=== PATIENT | male | born 1980 | race Caucasian/White ===

== ENCOUNTER 2019-12-24 11:57 | Observation (INO) | payer OTHER, SELFPAY ==
[2019-12-24] VITALS (9 sets, daily range): BP systolic 120–154; BP diastolic 83–108; PULSE 77–109; RESP 16–18; TEMP 36.6–37.2; O2SAT 97–100; BMI 25.2
--- NOTE | ~2019-12-24 | US_ITS ---
EXAMINATION: US right upper quadrant DATE: 12/24/2019 15:29 INDICATION: Acute cholecystitis TECHNIQUE: Multiple grayscale and Doppler ultrasound images of the abdomen were obtained. COMPARISON: CT dated 12/24/2019 FINDINGS: The body of the pancreas is poorly visualized but appears unremarkable. Liver has normal contour, wit h a smooth surface. There is increased parenchymal echogenicity and coarsened echotexture consistent with diffuse hepatic steatosis. No liver lesion identified. No intrahepatic biliary duct dilation maldonado spected. Portal venous flow was seen in the hepatopetal, normal direction and has normal Doppler wave form. There is diffuse mild gallbladder wall thickening. There is small amount of hypoechoic sludge i n the dependent gallbladder. No evidence shadowing cholelithiasis. The common bile duct measures 5 mm , which is normal. Sonographic Chairez sign was reported as positive by the weatherseal technician. Visualized po rtion of the right kidney demonstrate normal echogenicity and contour with no hydronephrosis. IMPRESSION: 1. Diffuse gallbladder wall thickening with positive sonographic Chairez's sign suggestive of acute ch olecystitis although no shadowing gallstones are identified. 2. Diffuse hepatic steatosis. Reviewed, dictated and finalized at location A. IMPRESSION: 1. Diffuse gallbladder wall thickening with positive sonographic Chairez's sign suggestive of acute cholecystitis although no shadowing gallstones are identifi ed. 2. Diffuse hepatic steatosis.
--- NOTE | ~2019-12-24 | CT_ITS ---
EXAMINATION: CT abdomen pelvis w con DATE: 12/24/2019 14:09 INDICATION: Right upper quadrant abdominal pain. TECHNIQUE: Computed tomography (CT) of the abdomen and pelvis was performed with 100 mL Omnipaque 350 intravenous contrast. Automated exposure control and iterative reconstruction technique were employe d. The dose-length product was 561.49 mGy-cm. COMPARISON: None. FINDINGS: The visualized portions of the lung bases demonstrate mild atelectasis. No pleural effusion . The heart size is normal. No pericardial effusion. There is mild bilateral gynecomastia. The liver and spleen are normal. The gallbladder is distended and demonstrates adjacent fat stranding, consiste nt with acute cholecystitis. The pancreas, adrenal glands, and kidneys are normal. There is a left in guinal hernia containing fat. There are no dilated loops of bowel. The appendix is normal. There are no pathologically enlarged lymph nodes. There is no free intraperitoneal fluid. There is mild thoraco lumbar spondylosis. IMPRESSION: 1. Acute cholecystitis. Reviewed, dictated and finalized at location A. IMPRESSION: 1. Acute cholecystitis.
--- NOTE | ~2019-12-24 | XR_ITS ---
EXAMINATION: XR chest 2V DATE: 12/24/2019 13:05 INDICATION: Chest pain. Epigastric abdominal pain. TECHNIQUE: Frontal and lateral views of the chest were obtained. COMPARISON: None. FINDINGS: Lung volumes are small. No pneumonia, pleural effusion, or pneumothorax. The heart size is normal. IMPRESSION: 1. Small lung volumes. Reviewed, dictated and finalized at location A. IMPRESSION: 1. Small lung volumes.
--- NOTE | 2019-12-24 11:58 | ECG_ITS ---
Measurements Intervals [place] Rate: 89 P: 23 DE: 147 QRS: 20 QRSD: 82 T: -8 QT: 358 QTc: 437 Interpretive Statements SINUS RHYTHM BORDERLINE ST-T WAVE ABNORMALITY- ANT/INF LEADS BASELINE WANDER- I, II, AVR, AVF, V3, V6 BORDERLINE ECG Electronically Signed On 12-24-2019 12:45:39 CDT by Stephen Coronado D.O.
[2019-12-24 12:25] LABS: Hematocrit 40.2 % (42.0-52.0); Hemoglobin 13.8 g/dL (14.0-18.0); Immature Granulocyte Percent A 0.2 % (0-0.5); Mean Corpuscular HGB Conc 34.3 g/dl (32-36); Mean Corpuscular Hemoglobin 30.3 pg (26-34); Mean Corpuscular Volume 88.4 fl (80-100); Mean Platelet Volume 9.5 fl (7.4-10.4); Neutrophils Percent Auto 72.8 % (45.5-73.1); Platelet Count Result 261 k/mm3 (150-375); Red Blood Count 4.55 M/mm3 (4.6-6.20); Red Cell Distribution Width 12.8 % (11.5-14.5); White Blood Count 9.2 K/mm3 (4.5-10.0)
[2019-12-24 12:26] LABS: Basophils Percent Auto 0.2 % (0.2-1.2); Eosinophils Absolute Auto 0.1 K/mm3 (0-0.3); Eosinophils Percent Auto 0.8 % (0-4.4); Immature Granulocyte Absolute 0.02 K/mm3 (0.00-0.031); Lymphocytes Percent Auto 20.6 % (18.3-44.2); Monocytes Absolute Auto 0.5 K/mm3 (0.1-0.6); Monocytes Percent Auto 5.4 % (2.6-8.5); Neutrophils Absolute Auto 6.7 K/mm3 (1.3-6.7)
[2019-12-24 12:30] LABS: Blood Urea Nitrogen 10 mg/dL (9-20); Calcium 9.5 mg/dL (8.4-10.2); Carbon Dioxide 27 mmol/L (22-30); Chloride 101 mmol/L (98-107); Estimated CRCL calculation 72 ml/min; Estimated Glomerular Filt Rate 56; Glucose 113 mg/dL (75-110); Potassium 3.9 mmol/L (3.4-5.0); Sodium 137 mmol/L (137-145)
[2019-12-24 12:40] LABS: Troponin I < 0.012 ng/mL (0.000-0.034)
--- NOTE | 2019-12-24 12:55 | ED.CHESTPAIN ---
HPI - Chest Pain General Chief Complaint: Chest Pain Stated Complaint: CHEST PAIN Time Seen by Provider: 12/24/19 12:55 History of Present Illness HPI narrative: Epigastric pain radiating into the back and flanks bilaterally since last night. Feels like pressure. Associated with nausea and vomiting. Tried gas-x and Tums without relief. Related Data Allergies Allergy/AdvReac Type Severity Reaction Status Date / Time No Known Allergies Allergy Verified 12/24/19 13:40 Review of Systems Review of Systems: All systems reviewed & are unremarkable except as noted in HPI and below Constitutional: Constitutional: Denies fever(s) Cardiovascular: Cardiovascular: Denies chest pain Respiratory: Respiratory: Denies dyspnea Gastrointestinal: Gastrointestinal: Reports abdominal pain, Reports nausea and Reports vomiting Neurologic: Denies dizziness and Denies weakness FORMERLY [facility], [facility]–1983 Past Medical History Medical History (Updated 12/24/19 @ 16:00 by Young Cooley MD) GERD (gastroesophageal reflux disease) Pineal gland cyst Social History Social History Gender identity (if verbalized by the patient): Male Exam Const: General: healthy appearing, no acute distress and alert Orientation/consciousness: patient oriented x3 HENMT: Head: normal to inspection Neck: Neck: normal visual inspection and no lymphadenopathy Chest: Chest palpation & inspection: no tenderness Resp: Effort & Inspection: normal respiratory effort Auscultation: clear to auscultation bilaterally, no rales, no rhonchi and no wheezes Cardio: Jugular venous distension: no JVD Rate: regular rate Rhythm: regular rhythm Heart sounds: no murmurs GI: GI Palp: Yes Soft to palpation and No Tenderness to palpation present (GI) Other: Epigastric tenderness without rebound or guarding. Skin: General skin exam: normal color Neuro: General: patient oriented x3 and moves all extremities Speech: normal speech Extrem: General: no edema Psych: Appearance: well kempt Affect: normal affect Course Vital Signs Vital signs: Vital Signs Temperature 36.6 C 12/24/19 12:00 Pulse Rate 95 12/24/19 12:00 Respiratory Rate 18 12/24/19 12:00 Blood Pressure 149/100 H 12/24/19 12:00 Pulse Oximetry 100 12/24/19 12:00 Temperature 36.6 C 12/24/19 12:00 Pulse Rate 77 12/24/19 15:47 Respiratory Rate 18 12/24/19 15:47 Blood Pressure 131/90 12/24/19 15:47 Pulse Oximetry 98 12/24/19 15:47 MDM - Chest Pain MDM Narrative Medical decision making narrative: Pain most concerning for gall bladder disease. CT shows acute cholecystitis. Case discussed with Dr. Devine. He will admit. requesting gall bladder US and Zosyn, ordered. Lab Data Result diagrams: 12/24/19 12:10 12/24/19 12:11 Labs: Lab Results 12/24/19 12/24/19 12/24/19 Range/Units 12:10 12:11 12:11 WBC 9.2 (4.5-10.0) K/mm3 RBC 4.55 L (4.6-6.20) M/mm3 Hgb 13.8 L (14.0-18.0) g/dL Hct 40.2 L (42.0-52.0) % MCV 88.4 (80-100) fl MCH 30.3 (26-34) pg MCHC 34.3 (32-36) g/dl RDW 12.8 (11.5-14.5) % Plt Count 261 (150-375) k/mm3 MPV 9.5 (7.4-10.4) fl Immature Gran % (Auto) 0.2 (0-0.5) % Neut % (Auto) 72.8 (45.5-73.1) % Lymph % (Auto) 20.6 (18.3-44.2) % [place] % (Auto) 5.4 (2.6-8.5) % Eos % (Auto) 0.8 (0-4.4) % Baso % (Auto) 0.2 (0.2-1.2) % Lymph # (Auto) 1.90 (0.9-3.2) K/mm3 [place] # (Auto) 0.5 (0.1-0.6) K/mm3 Eos # (Auto) 0.1 (0-0.3) K/mm3 Baso # (Auto) 0.0 (0.0-0.1) K/mm3 Abs Immat Gran (auto) 0.02 (0.00-0.031) K/mm3 Absolute Neuts (auto) 6.7 (1.3-6.7) K/mm3 Absolute Nucleated RBC 0.0 (0.0-0.012) K/mm3 Nucleated RBC % 0.0 (0.0-0.2) % PT 12.3 (11.1-14.7) Seconds INR 0.9 APTT 30.0 (22.3-36.8) SECONDS Sodium 137 (137-145) mmol/L Potassium 3.9 (3.4-5.0) mmol/L Ch
[2019-12-24] MEDS: ASPIRIN 81 MG CHEWABLE TABLET 324 MG PO (12:59)
[2019-12-24 13:06] LABS: INR 0.9; Prothrombin Time 12.3 Seconds (11.1-14.7)
[2019-12-24] MEDS: PANTOPRAZOLE SODIUM IV 40 MG VIAL IV PUSH (13:38)
[2019-12-24] MEDS: SODIUM CHLORIDE 0.9% IV 1,000 ML 999 ML IV CONT (13:40)
[2019-12-24 13:51] LABS: Alanine Aminotransferase 38 U/L (4-50); Albumin Level 4.9 g/dL (3.5-5.1); Alkaline Phosphatase 99 U/L (38-126); Aspartate Amino Transferase 30 U/L (17-59); Bilirubin,Total 0.5 mg/dL (0.2-1.3); Lactic Acid Reflex 0.9 mmol/L (0.7-2.1); Lipase 36 U/L (23-300)
--- NOTE | 2019-12-24 15:54 | PM.IMHP ---
H&P: HPI History of Present Illness Chief complaint: Acute cholecystitis Narrative: Carol Andre is a 39 year old male with a history of GERD who presented to the emergency department today with complaints of epigastric abdominal pain radiating around his upper abdomen to his mid back and lower chest. Patient reports initially noting a similar pain about 2 weeks ago shortly after eating a sausage, egg, and cheese breakfast sandwhich. The pain at that time was less severe and resolved spontaneously within about 4-5 hours. He reports that the same pain recurred about 2 nights later a few hours after eating a deli meat sandwich for dinner. The abdominal pain at that time lasted for about 8 hours. He called his PCP the next morning and did a virtual visit, which he was told to take laxatives to see if this improves. No labs or imaging was ordered at that time. He reportedly took Miralax and had multiple bowel movements and his pain subsided. He then had no issues again until last night around 11:00 pm when he had a sudden onset of the upper abdominal pain a few hours after eating a meat lover's pizza. Throughout the night and into this morning, the pain significantly worsened and was unrelenting. He did have an episode of nausea after trying to take Miralax last night, but this subsided without any vomiting. Denies any fevers or chills. Due to the unrelenting severe pain, he presented to the emergency department for further evaluation. CT scan of the abdomen and pelvis showed acute cholecystitis with gallbladder distention and adjacent fat stranding but no evidence of cholelithiasis. Also incidentally noted was a fat-containing left inguinal hernia. Chest x-ray showed small lung volumes but no acute cardiopulmonary findings. Labs showed a normal white blood cell count, normal LFTs, normal lipase, and normal troponin. Our service was contacted by the ED physician for surgical evaluation of acute cholecystitis. The patient is now being seen in the emergency department. Right upper quadrant ultrasound has been ordered. The patient reports his pain improving after receiving Fentanyl in the ER, but it is slowly starting to become more intense as the pain medication wears off. He currently reports upper abdominal pain at an 8/10 on a pain scale. Denies nausea, vomiting, or chills. Reports bloating. No other complaints at this time. Review of Systems Constitutional: Constitutional: Reports as per HPI, Denies chills, Denies excessive sweating, Denies fatigue, Denies fever(s), Denies headache(s) and Denies weakness Eyes: Eyes: Denies change in vision and Denies loss of vision ENT: Reports Normal hearing present, Denies dizziness and Denies headache(s) Cardiovascular: Cardiovascular: Denies chest pain, Denies syncope, Denies leg edema, Denies lightheadedness, Denies radiating jaw, neck or arm pain and Denies dyspnea Respiratory: Respiratory: Denies cough, Denies dyspnea and Denies wheezing Gastrointestinal: Gastrointestinal: Reports as per HPI, Reports abdominal pain (epigastric abd pain radiating bilaterally across upper abdomen/mid back), Reports bloating, Denies change in bowel habits, Denies constipation, Denies dysphagia, Denies diarrhea, Denies loose stools, Reports nausea and Denies vomiting Genitourinary: Genitourinary: Reports no additional male genitourinary complaints, Denies hematuria and Denies dysuria Musculoskeletal: Musculoskeletal: Denies deformity, Denies joint swelling, Denies radiating pain into limb and Denies tingling Integumentary/Breasts: Skin/Breast: Denies pruritus, Denies wounds and Denies jaundice Neurologic: Reports Normal hearing present, Denies confusion, Denies dizziness, Denies syncope, Denies headache(s), Denies loss of vision, Denies tingling, Denies tremor(s) and Denies weakness Psychiatric: Psychiatric: Denies anxiety, Denies confusion and Denies depression Endocrine: Endocrine: Denies cold intolerance, Denies excessive sweating, Den
[2019-12-24 16:11] LABS: Troponin I < 0.012 ng/mL (0.000-0.034)
--- NOTE | 2019-12-24 16:24 | ADMGEN ---
This patient, Carol Andre, was admitted to 2 Medical Room 242-01. Patient/family oriented to hospital policies and general routines including ID bracelet, bed and alarms, visiting hours, pain management, procedures, bathroom and other care routines, personal items, smoking policy, room service/diet, and visiting hours. Valuables list has been completed. Information on how to activate the Rapid Response Team has been discussed. Patient/Family are encouraged to report perceived risks to care and to ask questions if they do not understand what they are told or what they should do.
[2019-12-24] MEDS: MORPHINE SULFATE 2 MG/ML INJ 1 MG IV PUSH (17:48)
[2019-12-24] MEDS: SODIUM CHLORIDE 0.9% IV 1,000 ML 100 ML IV CONT (18:03)
[2019-12-24 18:51] LABS: Troponin I < 0.012 ng/mL (0.000-0.034)
[2019-12-24] MEDS: HYDROMORPHONE HCL 1 MG/ML INJ IV PUSH ×2 (19:40→22:08)
[2019-12-25] VITALS (12 sets, daily range): BP systolic 113–152; BP diastolic 65–94; PULSE 71–112; RESP 13–20; TEMP 36.4–38.4; O2SAT 93–100
[2019-12-25] MEDS: HYDROMORPHONE HCL 1 MG/ML INJ IV PUSH ×2 (00:04→02:07)
[2019-12-25] MEDS: SODIUM CHLORIDE 0.9% IV 1,000 ML 100 ML IV CONT ×2 (03:10→19:56)
[2019-12-25] MEDS: HYDROMORPHONE HCL 2 MG/ML VIAL 1.5 MG IV PUSH ×3 (04:36→08:37)
--- NOTE | 2019-12-25 07:42 | WPDANESEPP ---
Anes - Eval Pre Procedure Procedure: Operation Date: 12/25/19 10:30 Proposed Procedures p Laparoscopic Cholecystectomy Possible Open - Corrie Devine MD Date/Time: 12/25/19 07:42 Pre Op Diagnosis: Acute cholecystitis Patient Data Age: 39 Gender: M Height: 2.01 m Weight: 101.9 kg Last Vital Signs Temp 36.4 C 12/25/19 06:00 Pulse 87 12/25/19 06:00 Resp 16 12/25/19 06:00 BP 148/90 H 12/25/19 06:00 Pulse Ox 95 12/25/19 06:00 Allergies Allergy/AdvReac Type Severity Reaction Status Date / Time anthrax vaccine Allergy Swelling Verified 12/24/19 16:26 Home Medications Medication Instructions Recorded Confirmed Type acyclovir 400 mg PO DAILY PRN 12/24/19 12/24/19 History amitriptyline 75 mg PO HS 12/24/19 12/24/19 History docusate sodium 100 mg PO BID 12/24/19 12/24/19 History loratadine [Claritin] 10 mg DAILY 12/24/19 12/24/19 History montelukast 10 mg PO HS 12/24/19 12/24/19 History omeprazole 40 mg PO DAILY 12/24/19 12/24/19 History Laboratory Tests 12/24/19 12/24/19 12/24/19 12:10 12:11 12:11 WBC 9.2 K/mm3 K/mm3 (4.5-10.0) RBC 4.55 M/mm3 L M/mm3 (4.6-6.20) Hgb 13.8 g/dL L g/dL (14.0-18.0) Hct 40.2 % L % (42.0-52.0) MCV 88.4 fl fl (80-100) MCH 30.3 pg pg (26-34) MCHC 34.3 g/dl g/dl (32-36) RDW 12.8 % % (11.5-14.5) Plt Count 261 k/mm3 k/mm3 (150-375) MPV 9.5 fl fl (7.4-10.4) Immature Gran % (Auto) 0.2 % % (0-0.5) Neut % (Auto) 72.8 % % (45.5-73.1) Lymph % (Auto) 20.6 % % (18.3-44.2) [place] % (Auto) 5.4 % % (2.6-8.5) Eos % (Auto) 0.8 % % (0-4.4) Baso % (Auto) 0.2 % % (0.2-1.2) Lymph # (Auto) 1.90 K/mm3 K/mm3 (0.9-3.2) [place] # (Auto) 0.5 K/mm3 K/mm3 (0.1-0.6) Eos # (Auto) 0.1 K/mm3 K/mm3 (0-0.3) Baso # (Auto) 0.0 K/mm3 K/mm3 (0.0-0.1) Abs Immat Gran (auto) 0.02 K/mm3 K/mm3 (0.00-0.031) Absolute Neuts (auto) 6.7 K/mm3 K/mm3 (1.3-6.7) Absolute Nucleated RBC 0.0 K/mm3 K/mm3 (0.0-0.012) Nucleated RBC % 0.0 % % (0.0-0.2) PT 12.3 Seconds Seconds (11.1-14.7) INR 0.9 APTT 30.0 SECONDS SECONDS (22.3-36.8) Sodium 137 mmol/L mmol/L (137-145) Potassium 3.9 mmol/L mmol/L (3.4-5.0) Chloride 101 mmol/L mmol/L (98-107) Carbon Dioxide 27 mmol/L mmol/L (22-30) BUN 10 mg/dL mg/dL (9-20) Creatinine 1.40 mg/dL H mg/dL (0.7-1.3) Estim Creat Clear Calc 72 ml/min ml/min Estimated GFR 56 L (59 - ) Glucose 113 mg/dL H mg/dL (75-110) Lactic Acid Calcium 9.5 mg/dL mg/dL (8.4-10.2) Total Bilirubin Direct Bilirubin AST ALT Alkaline Phosphatase Troponin I < 0.012 ng/mL ng/mL (0.000-0.034) Total Protein Albumin Lipase 12/24/19 12/24/19 12/24/19 13:34 13:34 15:36 WBC RBC Hgb Hct MCV MCH MCHC RDW Plt Count MPV Immature Gran % (Auto) Neut % (Auto) Lymph % (Auto) [place] % (Auto) Eos % (Auto) Baso % (Auto) Lymph # (Auto) [place] # (Auto) Eos # (Auto) Baso # (Auto) Abs Immat Gran (auto) Absolute Neuts (auto) Absolute Nucleated RBC Nucleated RBC % PT INR APTT Sodium Potassium Chloride Carbon Dioxide BUN Creatinine Estim Creat Clear Calc Estimated GFR
[2019-12-25] MEDS: LACTATED RINGERS 1,000 ML 30 ML IV CONT ×2 (10:15→12:02)
--- NOTE | 2019-12-25 10:21 | WPDANESEPPF ---
Anes - Initial Pre Proc Eval Procedure: Operation Date: 12/25/19 10:30 Proposed Procedures p Laparoscopic Cholecystectomy Possible Open - Corrie Devine MD Date/Time: 12/25/19 10:21 Surgeon: Corrie Devine MD Pre Op Diagnosis: Acute cholecystitis Patient Data Age: 39 Gender: M Height: 6 ft 7 in Weight: 101.9 kg Last Vital Signs Temp 97.6 F 12/25/19 06:00 Pulse 87 12/25/19 06:00 Resp 16 12/25/19 06:00 BP 148/90 H 12/25/19 06:00 Pulse Ox 95 12/25/19 06:00 Allergies Allergy/AdvReac Type Severity Reaction Status Date / Time anthrax vaccine Allergy Swelling Verified 12/24/19 16:26 Home Medications Medication Instructions Recorded Confirmed Type acyclovir 400 mg PO DAILY PRN 12/24/19 12/24/19 History amitriptyline 75 mg PO HS 12/24/19 12/24/19 History docusate sodium 100 mg PO BID 12/24/19 12/24/19 History loratadine [Claritin] 10 mg DAILY 12/24/19 12/24/19 History montelukast 10 mg PO HS 12/24/19 12/24/19 History omeprazole 40 mg PO DAILY 12/24/19 12/24/19 History Laboratory Tests 12/24/19 12/24/19 12/24/19 12:10 12:11 12:11 WBC 9.2 K/mm3 K/mm3 (4.5-10.0) RBC 4.55 M/mm3 L M/mm3 (4.6-6.20) Hgb 13.8 g/dL L g/dL (14.0-18.0) Hct 40.2 % L % (42.0-52.0) MCV 88.4 fl fl (80-100) MCH 30.3 pg pg (26-34) MCHC 34.3 g/dl g/dl (32-36) RDW 12.8 % % (11.5-14.5) Plt Count 261 k/mm3 k/mm3 (150-375) MPV 9.5 fl fl (7.4-10.4) Immature Gran % (Auto) 0.2 % % (0-0.5) Neut % (Auto) 72.8 % % (45.5-73.1) Lymph % (Auto) 20.6 % % (18.3-44.2) [place] % (Auto) 5.4 % % (2.6-8.5) Eos % (Auto) 0.8 % % (0-4.4) Baso % (Auto) 0.2 % % (0.2-1.2) Lymph # (Auto) 1.90 K/mm3 K/mm3 (0.9-3.2) [place] # (Auto) 0.5 K/mm3 K/mm3 (0.1-0.6) Eos # (Auto) 0.1 K/mm3 K/mm3 (0-0.3) Baso # (Auto) 0.0 K/mm3 K/mm3 (0.0-0.1) Abs Immat Gran (auto) 0.02 K/mm3 K/mm3 (0.00-0.031) Absolute Neuts (auto) 6.7 K/mm3 K/mm3 (1.3-6.7) Absolute Nucleated RBC 0.0 K/mm3 K/mm3 (0.0-0.012) Nucleated RBC % 0.0 % % (0.0-0.2) PT 12.3 Seconds Seconds (11.1-14.7) INR 0.9 APTT 30.0 SECONDS SECONDS (22.3-36.8) Sodium 137 mmol/L mmol/L (137-145) Potassium 3.9 mmol/L mmol/L (3.4-5.0) Chloride 101 mmol/L mmol/L (98-107) Carbon Dioxide 27 mmol/L mmol/L (22-30) BUN 10 mg/dL mg/dL (9-20) Creatinine 1.40 mg/dL H mg/dL (0.7-1.3) Estim Creat Clear Calc 72 ml/min ml/min Estimated GFR 56 L (59 - ) Glucose 113 mg/dL H mg/dL (75-110) Lactic Acid Calcium 9.5 mg/dL mg/dL (8.4-10.2) Total Bilirubin Direct Bilirubin AST ALT Alkaline Phosphatase Troponin I < 0.012 ng/mL ng/mL (0.000-0.034) Total Protein Albumin Lipase 12/24/19 12/24/19 12/24/19 13:34 13:34 15:36 WBC RBC Hgb Hct MCV MCH MCHC RDW Plt Count MPV Immature Gran % (Auto) Neut % (Auto) Lymph % (Auto) [place] % (Auto) Eos % (Auto) Baso % (Auto) Lymph # (Auto) [place] # (Auto) Eos # (Auto) Baso # (Auto) Abs Immat Gran (auto) Absolute Neuts (auto) Absolute Nucleated RBC Nucleated RBC % PT INR APTT Sodium Potassium Chloride Carbon Dioxide BUN Creatinine Estim Creat Cl
[2019-12-25] MEDS: BUPIVACAINE/EPINEPHRINE 0.5% 10 ML VIAL 20 ML INFILTRATE (11:15)
--- NOTE | 2019-12-25 11:49 | PM.PROC ---
Procedure Note - Detailed Date of procedure: 12/25/19 Pre-op diagnosis: Acute cholecystitis Post-op diagnosis: other (Acute gangrenous cholecystitis) Procedure performed: laparoscopic cholecystectomy Description of procedure: The patient was taken to the operating room placed in the supine position. After adequate induction of general anesthesia, the patient was prepped and draped in normal sterile fashion. A time-out was then performed to verify the patient's identity as well as the procedure being performed. I then made a 5 mm incision in the infraumbilical region. Through this, a Veress needle was placed into the peritoneal cavity and CO2 gas was then insufflated. After adequate pneumoperitoneum was achieved, the Veress needle was removed and a 5 mm trocar was placed through this incision. I then placed the laparoscope through this trocar site and under direct visualization placed a further 12 mm subxiphoid port as well as 2 additional 5 mm ports in the right upper abdomen. The gallbladder was then identified and was noted to be very inflamed with patchy areas of gangrene. Due to this, I decompressed the gallbladder with an ovarian needle. A large amount of very thick bile was drained from the gallbladder. Once the gallbladder was decompressed, I was able to place a grasper at the dome of the gallbladder and this was retracted anterior and cephalad up over the liver. A 2nd retractor was then placed at the infundibulum and retracted laterally, this allowed visualization of the triangle of Cal[place]. I then was able to visualize the cystic duct in its entirety from its proximal insertion into the gallbladder, to its distal junction with the common hepatic/common bile duct junction. At this point, I carefully skeletonized the proximal cystic duct with the [place] dissector. I then clipped and transected the proximal cystic duct. Next I visualized the cystic artery. Again the artery was skeletonized, clipped, and transected. I then used the Bovie cautery to take down the peritoneal attachments of the gallbladder off the liver bed. This was quite difficult given the amount of inflammation and necrosis within the gallbladder wall itself. The gallbladder wall was very difficult to dissect and was ripping apart with any retraction. Due to this, part of the posterior gallbladder wall was left on the liver bed. Once the gallbladder specimen was completely detached, an endo-pouch was placed through the 12 mm port site. I then placed the gallbladder specimen into the Endo pouch and removed the endo-pouch from the 12 mm port site. The specimen will now be sent to pathology for further review. I then copiously irrigated the right upper quadrant. Hemostasis was noted in the liver bed, the clips were noted to be in good position on both the cystic duct stump and the cystic artery stump. Given the large amount of inflammation, I placed omentum in the liver bed to continue hemostasis. No other pathology was noted in the right upper quadrant. I then moved the laparoscope to the subxiphoid port. No iatrogenic injury or other pathology was noted in the lower abdomen. At this point, the abdomen was desufflated and all ports removed. The fascia of the 12 mm subxiphoid port was closed with a 0 Vicryl figure of 8 suture. All port sites were then closed with 4.O Monocryl subcuticular sutures. Dermabond was placed on each incision. The patient tolerated the procedure well, was extubated in the operating room postoperative and will be transferred to the recovery room in stable condition. Implants: none Anesthesia: GETA Surgeon: Corrie Devine MD Estimated blood loss (mL): 20 Drains: No Packing: No Pathology: yes Complications: No immediate complications Condition: stable Disposition: PACU Findings: acute gangrenous cholecystitis
--- NOTE | 2019-12-25 13:22 | SUR.PHASEI ---
PT ATTEMPTING TO VOID WITHOUT SUCCESS.
[2019-12-25 14:06] LABS: Blood Urea Nitrogen 7 mg/dL (9-20); Calcium 8.6 mg/dL (8.4-10.2); Carbon Dioxide 27 mmol/L (22-30); Chloride 98 mmol/L (98-107); Estimated CRCL calculation 89 ml/min; Estimated Glomerular Filt Rate > 60; Glucose 123 mg/dL (75-110); Potassium 4.1 mmol/L (3.4-5.0); Sodium 134 mmol/L (137-145)
[2019-12-25] MEDS: SODIUM CHLORIDE 0.9% IV 1,000 ML 1000 ML IV CONT (18:20)
[2019-12-25] MEDS: AMITRIPTYLINE HCL 25 MG TABLET 75 MG PO (21:32)
[2019-12-25] MEDS: PANTOPRAZOLE 40 MG TABLET PO (21:32)
[2019-12-25] MEDS: MONTELUKAST SODIUM 10 MG TABLET PO (21:32)
[2019-12-26] MEDS: SODIUM CHLORIDE 0.9% IV 1,000 ML 100 ML IV CONT (05:13)
[2019-12-26 05:41] LABS: Hematocrit 34.9 % (42.0-52.0); Hemoglobin 11.6 g/dL (14.0-18.0); Mean Corpuscular HGB Conc 33.2 g/dl (32-36); Mean Corpuscular Hemoglobin 30.3 pg (26-34); Mean Corpuscular Volume 91.1 fl (80-100); Mean Platelet Volume 10.3 fl (7.4-10.4); Platelet Count Result 224 k/mm3 (150-375); Red Blood Count 3.83 M/mm3 (4.6-6.20); Red Cell Distribution Width 13.2 % (11.5-14.5); White Blood Count 9.9 K/mm3 (4.5-10.0)
[2019-12-26 05:42] LABS: Alanine Aminotransferase 95 U/L (4-50); Albumin Level 3.9 g/dL (3.5-5.1); Alkaline Phosphatase 83 U/L (38-126); Aspartate Amino Transferase 73 U/L (17-59); Bilirubin,Total 0.8 mg/dL (0.2-1.3); Blood Urea Nitrogen 10 mg/dL (9-20); Calcium 8.8 mg/dL (8.4-10.2); Carbon Dioxide 30 mmol/L (22-30); Chloride 101 mmol/L (98-107); Estimated CRCL calculation 89 ml/min; Estimated Glomerular Filt Rate > 60; Glucose 108 mg/dL (75-110); Potassium 4.1 mmol/L (3.4-5.0); Sodium 136 mmol/L (137-145)
[2019-12-26 06:02] VITALS: BP 123/76; PULSE 76; RESP 18; TEMP 36.3; O2SAT 96
[2019-12-26 07:27] VITALS: PULSE 71; O2SAT 95
--- NOTE | 2019-12-26 08:07 | WPDANESPN ---
Anes - Prog Note Post-Op Date/Time: 12/26/19 08:07 Cardiovascular status: normal Respiratory status: normal Airway patency: baseline Mental status: baseline Post-Op hydration status: normal Vital Signs: Last Vital Signs Temp 36.3 C L 12/26/19 06:02 Pulse 71 12/26/19 07:27 Resp 18 12/26/19 06:02 BP 123/76 12/26/19 06:02 Pulse Ox 95 12/26/19 07:27 I/O: Intake & Output 12/25/19 12/26/19 12/26/19 23:59 07:59 15:59 Intake Total 1700 1150 Balance 1700 1150 Laboratory Tests 12/26/19 04:42 12/26/19 04:42 12/25/19 12/26/19 12/26/19 13:45 04:42 04:42 WBC 9.9 RBC 3.83 L Hgb 11.6 L Hct 34.9 L MCV 91.1 MCH 30.3 MCHC 33.2 RDW 13.2 Plt Count 224 MPV 10.3 Sodium 134 L 136 L Potassium 4.1 4.1 Chloride 98 101 Carbon Dioxide 27 30 BUN 7 L 10 Creatinine 1.30 1.30 Estim Creat Clear Calc 89 89 Estimated GFR > 60 > 60 Glucose 123 H 108 Calcium 8.6 8.8 Total Bilirubin 0.8 AST 73 H ALT 95 H Alkaline Phosphatase 83 Total Protein 7.0 Albumin 3.9 Post-procedural complaints: none Patient Feedback: Patient satisfied with anesthetic care.
[2019-12-26] MEDS: LORATADINE 10 MG TABLET PO (08:49)
[2019-12-26] MEDS: PANTOPRAZOLE 40 MG TABLET PO (08:49)
[2019-12-26] MEDS: DOCUSATE SODIUM 100 MG CAPSULE PO (08:49)
--- NOTE | 2019-12-26 12:20 | PM.DS ---
DS: Admitting Diagnosis Admitting Diagnosis Admitting Diagnosis: Acute cholecystitis DS: Discharge Diagnosis Discharge Diagnosis (1) Acute cholecystitis: Code(s): K81.0 - Acute cholecystitis Status: Acute Assessment and Plan: Doing well on postop day 1. Tolerating regular diet and pain well controlled. Up ambulating with minimal assistance. Will discharge home oral antibiotics 1 more week. Discussed discharge instructions with patient. (2) Acute renal failure: Code(s): N17.9 - Acute kidney failure, unspecified Status: Acute (3) Reducible left inguinal hernia: Code(s): K40.90 - Unilateral inguinal hernia, without obstruction or gangrene, not specified as recurrent Status: Acute DS: Summary Hospital Course Reason for hospitalization: Acute cholecystitis Hospital Course: This is a 39-year-old man who presented to the emergency department with severe abdominal pain. He was found to have evidence of acute cholecystitis. He was taken for laparoscopic cholecystectomy by Dr. Devine on 12/25/2019. Gallbladder at the time of surgery appeared to be early gangrenous. Surgery was uncomplicated and he was returned to the surgical floor postoperatively. His diet was slowly advanced as tolerated and he was continued on IV Zosyn. On postop day 1 he was tolerating a regular diet and his pain was controlled. He was remaining afebrile and hemodynamically stable. He was discharged on postop day 1. Status at Discharge Functional status at discharge: independent ambulation Overall status at discharge: patient is progressing back to baseline Time Spent with Patient Time attestation: Total time spent providing and/or coordinating discharge services: Time spent: Less than 30 minutes Exam Const: General: no acute distress Resp: Auscultation: clear to auscultation bilaterally Cardio: Rate: regular rate Rhythm: regular rhythm GI: Inspection: non-distended GI Palp: Yes Soft to palpation and Yes Tenderness to palpation present (GI) (Incisional) Psych: Mental Status: mental status grossly normal DS: Data Data Completed and Pending Pending studies at discharge: Pending at discharge 12/25/19 11:08 Surgical [PTH] Routine Labs on day of discharge: Labs from last 24 hours 12/26/19 12/26/19 12/25/19 04:42 04:42 13:45 WBC 9.9 RBC 3.83 L Hgb 11.6 L Hct 34.9 L MCV 91.1 MCH 30.3 MCHC 33.2 RDW 13.2 Plt Count 224 MPV 10.3 Sodium 136 L 134 L Potassium 4.1 4.1 Chloride 101 98 Carbon Dioxide 30 27 BUN 10 7 L Creatinine 1.30 1.30 Estim Creat Clear Calc 89 89 Estimated GFR > 60 > 60 Glucose 108 123 H Calcium 8.8 8.6 Total Bilirubin 0.8 AST 73 H ALT 95 H Alkaline Phosphatase 83 Total Protein 7.0 Albumin 3.9 Discharge Plan Discharge Attending physician on discharge: Corrie Devine Discharging Clinician: Ryan Frankel Patient Disposition: Home, Self-Care Activity: may shower, as tolerated and other - see discharge instructions Diet: as tolerated Wound Care Instructions: follow printed instructions Discharge Instructions: DISCHARGE INSTRUCTION SHEET FOR HERNIA, GALLBLADDER AND APPENDIX SURGERIES DR. DEVINE PATIENT TO TAKE HOME 1. May shower in 24 hours, no soaking in bath x 2weeks. 2. Call office for: Wound increasingly painful or bleeding Vomiting Fever of greater than 101 degrees 3. If no bowel movement for three days, take 1 oz. (30 ml) Milk of Magnesia or MiraLax 17g 1 to 2 times daily. 4. No heavy lifting > 10-15 pounds x weeks for hernia repairs and 2 weeks for laparoscopic cholecystectomy or appendectomy. 5. No driving for 3 days or while taking narcotic pain medications. 6. Ice to surgical site for 48 hours (30 min on, then 30 min off). 7. Up walking 10-30 minutes three times per day
== END 2019-12-26 13:25 | disposition home or self-care (01) ==
LOC: ANHED 15:06 → ANH2MED 15:50
PROVIDERS: Nurse Practitioner Family; Admitting Provider Surgery; Emergency Provider Emergency Medicine; Visit Provider Surgery
PROC: 0FT44ZZ Resection of Gallbladder, Percutaneous Endoscopic Approach (ICD-10-PCS; CPT 47562; principal; 2019-12-25 10:30)
DX: K80.00 Calculus of gallbladder with acute cholecystitis without obstruction (principal); K82.A1 Gangrene of gallbladder in cholecystitis; N17.9 Acute kidney failure, unspecified; K40.90 Unilateral inguinal hernia, without obstruction or gangrene, not specified as recurrent; K21.9 Gastro-esophageal reflux disease without esophagitis; F17.290 Nicotine dependence, other tobacco product, uncomplicated
CPT/HCPCS: 47562; 36415; 71046; 74177; 76705; 80048; 80053; 80076; 83605; 83690; 84484; 85025; 85027; 85610; 85730; 88304; 93005; 96361; 96365; 96366; 96367; 96375; 96376; 99285; A9270; C1713; C9113; G0378; J0131; J0330; J1100; J1170; J2250; J2270; J2310; J2405; J2543; J2704; J2710; J3010; J7030; J7120; Q9967

== ENCOUNTER 2023-07-22 09:16 | Emergency (ER) | payer OTHER, SELFPAY ==
--- NOTE | ~2023-07-22 | XR_ITS ---
EXAMINATION: XR chest 1V portable DATE: 07/22/2023 09:39 INDICATION: Cough and congestion. TECHNIQUE: A single frontal view of the chest was obtained. COMPARISON: Chest 2 views 12/24/2019, CT abdomen and pelvis 12/24/2019 FINDINGS: There is no pneumonia, pleural effusion, or pneumothorax. The heart size is normal. IMPRESSION: 1. No acute cardiopulmonary disease. Reviewed, dictated and finalized at location A. [facility] PROFESSOR OF PATHOLOGY
--- NOTE | 2023-07-22 09:18 | ED.URI ---
HPI - URI/Sore Throat General Chief Complaint: Upper Respiratory Infection Stated Complaint: cough Time Seen by Provider: 07/22/23 09:18 Source: patient Mode of arrival: ambulatory Limitations: no limitations History of Present Illness HPI Narrative: Carol is a 43-year-old male patient presenting to the ER today with complaints of a productive cough, sinus pressure, green/almaguer nasal drainage, and headache x4 days. He reports history of chronic sinusitis. Denies any fever or chills. Did at home COVID test and it was negative. Denies any shortness of breath, sore throat, or chest pain. MD elicited complaint: cough, nasal congestion, sinus pain and other (Headache) Related Data Home Medications Medication Instructions Recorded Confirmed acyclovir 400 mg tablet 400 mg PO DAILY PRN Skin breakout 12/24/19 12/24/19 amitriptyline 75 mg tablet 75 mg PO HS 12/24/19 12/24/19 docusate sodium 100 mg capsule 100 mg PO BID 12/24/19 12/24/19 loratadine 10 mg tablet (Claritin) 10 mg DAILY 12/24/19 12/24/19 montelukast 10 mg tablet 10 mg PO HS 12/24/19 12/24/19 omeprazole 40 mg capsule,delayed 40 mg PO DAILY 12/24/19 12/24/19 release Allergies Allergy/AdvReac Type Severity Reaction Status Date / Time anthrax vaccine Allergy Swelling Verified 07/22/23 09:35 Review of Systems Review of Systems: Pertinent positives per HPI. Patient denies any fever, chills, rash, visual changes, dizziness,shortness of breath, chest pain, palpitations, nausea, vomiting, diarrhea, constipation, abdominal pain, or any urinary issues. [facility] Past Medical History Medical History Anxiety GERD (gastroesophageal reflux disease) Pineal gland cyst Surgical History Surgical History History of esophagogastroduodenoscopy (EGD) Findings of reflux History of nasal surgery Two nasal surgeries, last one in 2017. Family History Family History Mother Gallbladder disease Breast cancer Grandparent Malignant neoplasm of prostate Grandparent Acute myocardial infarction Social History Social History Social History: The patient is currently retire from the [employer]. He lives with his , Kia, who he designates his decision-maker. He wishes to be a full code. He is a former smoker from the age of 16 until about 2 years ago. He would smoke off and on about 1/2 pack per week and then switched to vaping and chewing tobacco. Smoking status: Former smoker Tobacco type: cigarettes, e-cigarettes/vaping and smokeless tobacco Alcohol intake: never Alcohol use details: Rare alcohol use. Substance use: never Living arrangements: with family Additional living arrangements comments: Lives with his . They have 3 children, 2 daughters and one son. Occupation/Education: retired Additional occupation/education comments: Retired from the . He was in the [employer]. Gender identity (if verbalized by the patient): Male Spiritual care concerns: No Comments At the time of my signature, I reviewed and agree with the nursing past medical, surgical, social, and family history. There is no relevant family history pertinent to the patient complaint. Exam Narrative: General: Well-developed, well nourished, in no apparent distress Head: Normocephalic, atraumatic Eyes: Pupils equally round and reactive to light bilaterally, EOM intact, sclera and conjunctive clear, no discharge, lids normal Ears: TMs intact and congested, ear canals clear, no drainage, grossly hearing normal. Nose: Nares patent, green nasal discharge, severe inflammation, maxillary and frontal sinus tenderness. Mouth: Oral pharynx without lesions or masses, good dentition, MMM. Postnasal drip Neck: Supple, trachea midline
[2023-07-22 09:20] VITALS: BP 150/88; PULSE 106; RESP 16; TEMP 36.8; O2SAT 97
[2023-07-22 09:30] VITALS: O2SAT 99
[2023-07-22 09:35] VITALS: BP 137/90; PULSE 82; RESP 16; O2SAT 98
== END 2023-07-22 10:12 | disposition home or self-care (01) ==
LOC: ANHED 09:50
PROVIDERS: Emergency Provider Nurse Practitioner Family
DX: J01.90 Acute sinusitis, unspecified (principal); B96.89 Other specified bacterial agents as the cause of diseases classified elsewhere; K21.9 Gastro-esophageal reflux disease without esophagitis; F41.9 Anxiety disorder, unspecified; F17.290 Nicotine dependence, other tobacco product, uncomplicated; F17.220 Nicotine dependence, chewing tobacco, uncomplicated
CPT/HCPCS: 71045; 99283

== ENCOUNTER 2023-11-15 08:26 | Emergency (ER) | payer OTHER, SELFPAY ==
--- NOTE | ~2023-11-15 | CT_ITS ---
EXAMINATION: CT abdomen pelvis w con DATE: 11/15/2023 10:09 INDICATION: Right lower quadrant abdominal pain. TECHNIQUE: Computed tomography (CT) of the abdomen and pelvis was performed with 100 mL Omnipaque 350 intravenous contrast. Automated exposure control and iterative reconstruction technique were employe d. The dose-length product was 835.13 mGy-cm. COMPARISON: CT abdomen and pelvis 12/24/2019 FINDINGS: The visualized portions of the lung bases demonstrate bilateral atelectasis. No pleural eff usion. There is mild bilateral gynecomastia. The heart size is normal. No pericardial effusion. The l iver is normal. There is a cholecystectomy. The spleen, pancreas, adrenal glands, and right kidney ar e normal. There is a 4 mm stone in left kidney. The bladder is markedly distended. There is a left in guinal hernia containing fat. The appendix is normal. There are no pathologically enlarged lymph node s. There is no free intraperitoneal fluid. There is mild thoracic and lumbar spondylosis. IMPRESSION: 1. Left inguinal hernia containing fat. Reviewed, dictated and finalized at location A.
[2023-11-15 08:35] VITALS: BP 147/105; PULSE 56; RESP 18; TEMP 36.6; O2SAT 99
[2023-11-15 08:52] LABS: Basophils Absolute Auto 0.1 K/mm3 (0.0-0.1); Basophils Percent Auto 0.8 % (0.2-1.2); Eosinophils Absolute Auto 0.2 K/mm3 (0-0.3); Eosinophils Percent Auto 2.4 % (0-4.4); Hematocrit 44.9 % (42.0-52.0); Hemoglobin 15.3 g/dL (14.0-18.0); Immature Granulocyte Absolute 0.02 K/mm3 (0.00-0.031); Immature Granulocyte Percent A 0.3 % (0-0.5); Lymphocytes Absolute Auto 2.01 K/mm3 (0.9-3.2); Lymphocytes Percent Auto 31.9 % (18.3-44.2); Mean Corpuscular HGB Conc 34.1 g/dl (32-36); Mean Corpuscular Hemoglobin 30.1 pg (26-34); Mean Corpuscular Volume 88.2 fl (80-100); Mean Platelet Volume 9.5 fl (7.4-10.4); Monocytes Absolute Auto 0.5 K/mm3 (0.1-0.6); Monocytes Percent Auto 7.9 % (2.6-8.5); Neutrophils Absolute Auto 3.6 K/mm3 (1.3-6.7); Neutrophils Percent Auto 56.7 % (45.5-73.1); Platelet Count Result 247 k/mm3 (150-375); Red Blood Count 5.09 M/mm3 (4.6-6.20); Red Cell Distribution Width 12.2 % (11.5-14.5); White Blood Count 6.3 K/mm3 (4.5-10.0)
[2023-11-15 08:53] LABS: Appearance Urine Clear (Clear); Bilirubin Urine Negative (Negative); Blood Urine Negative (Negative); Color Urine Yellow (Yellow); Glucose Urine UA Negative (Negative); Ketones Urine Negative (Negative); Leukocyte Esterase Ur Negative LEU/UL (Negative); Nitrate Urine Negative (Negative); Protein Urine Negative (Negative); Urobilinogen Urine 0.2 mg/dL (<2.0)
[2023-11-15 08:59] LABS: Add Urine Microscopic? NO
--- NOTE | 2023-11-15 08:59 | ED.ABDPAIN ---
HPI - Abdominal Pain General Chief Complaint: Abdominal Pain Stated Complaint: RLQ ABD PAIN Time Seen by Provider: 11/15/23 08:45 Source: patient and family () Mode of arrival: ambulatory Limitations: no limitations History of Present Illness HPI narrative: Patient presents with right lower quadrant pain beginning at approximately 8:00 p.m. last night. Pain is worse when sitting up. It started as dull but had increased to an intermittent sharp pain with increasing intensity from yesterday. He notes that he was nauseated last night but not currently. No vomiting. He denies any diarrhea or bloody stool. His last bowel movement was this morning and he did note that it was slightly harder to pass than usual and decreased amount from usual BM he has after his coffee. NAVEED was 2am. he noted that his appetite was okay last night. He has a history of gangrenous cholecystitis in 2020 status post cholecystectomy which had been having symptoms for for a long time prior to presenting to the emergency department so he he came today before waiting too long like last time. he does note that he had increased urinary frequency yesterday but denies any hematuria or dysuria. Related Data Home Medications Medication Instructions Recorded Confirmed acyclovir 400 mg tablet 400 mg PO DAILY PRN Skin breakout 12/24/19 12/24/19 amitriptyline 75 mg tablet 75 mg PO HS 12/24/19 12/24/19 docusate sodium 100 mg capsule 100 mg PO BID 12/24/19 12/24/19 loratadine 10 mg tablet (Claritin) 10 mg DAILY 12/24/19 12/24/19 montelukast 10 mg tablet 10 mg PO HS 12/24/19 12/24/19 omeprazole 40 mg capsule,delayed 40 mg PO DAILY 12/24/19 12/24/19 release Allergies Allergy/AdvReac Type Severity Reaction Status Date / Time anthrax vaccine Allergy Swelling Verified 11/15/23 08:26 [facility] Past Medical History Medical History (Updated 11/15/23 @ 10:45 by Adriana Trivedi MD) Anxiety Gangrenous cholecystitis s/p sandy GERD (gastroesophageal reflux disease) Pineal gland cyst Surgical History Surgical History History of esophagogastroduodenoscopy (EGD) Findings of reflux History of laparoscopic cholecystectomy 12/25/[address] Devine History of nasal surgery Two nasal surgeries, last one in 2017. Family History Family History Mother Gallbladder disease Breast cancer Grandparent Malignant neoplasm of prostate Grandparent Acute myocardial infarction Social History Social History Social History: The patient is currently retire from the [employer]. [employer]. He lives with his , Kia, who he designates his decision-maker. He wishes to be a full code. He is a former smoker from the age of 16 until about 2 years ago. He would smoke off and on about 1/2 pack per week and then switched to vaping and chewing tobacco. Smoking status: Former smoker Tobacco type: cigarettes, e-cigarettes/vaping and smokeless tobacco Alcohol intake: never Alcohol use details: Rare alcohol use. Substance use: never Living arrangements: with family Additional living arrangements comments: Lives with his . They have 3 children, 2 daughters and one son. Occupation/Education: retired Additional occupation/education comments: Retired from the . He was in the [employer] Gender identity (if verbalized by the patient): Male Spiritual care concerns: No Exam Narrative: GENERAL: Well-appearing, well-nourished, and in no acute distress. HEAD: Normocephalic, atraumatic. EYES: Non injected, non icteric ENT: Nares clear, no rhinorrhea or epistaxis. NECK: Supple. CHEST: Speaking in full sentences. No respiratory distress. HEART: Bradycardic rate and rhythm. . ABDOMEN: Soft, nondistended. Tenderness to palpation in the right lower quadrant though slightly inferio
[2023-11-15] MEDS: SODIUM CHLORIDE 0.9% IV 1,000 ML 999 ML IV CONT (09:27)
[2023-11-15] MEDS: MORPHINE SULFATE (*CRX) 4 MG/ML INJ IV PUSH (09:28)
[2023-11-15 09:50] LABS: Alanine Aminotransferase 27 U/L (6-50); Albumin Level 4.4 g/dL (3.5-5.1); Alkaline Phosphatase 70 U/L (38-126); Anion Gap 5 mmol/L (4-12); Aspartate Amino Transferase 25 U/L (17-59); Bilirubin,Total 0.6 mg/dL (0.2-1.3); Blood Urea Nitrogen 19 mg/dL (9-20); Calcium 9.5 mg/dL (8.4-10.2); Carbon Dioxide 28 mmol/L (22-30); Chloride 106 mmol/L (98-107); Estimated CRCL calculation 66 ml/min; Estimated Glomerular Filt Rate 55; Glucose 103 mg/dL (65-110); Lipase 68 U/L (23-300); Potassium 4.3 mmol/L (3.4-5.0); Sodium 139 mmol/L (137-145)
[2023-11-15] MEDS: DICYCLOMINE HCL 10 MG CAPSULE PO (10:59)
[2023-11-15] MEDS: PSYLLIUM POWDER PACKET 1 PACKET PO (10:59)
[2023-11-15] MEDS: KETOROLAC 15 MG/ML VIAL (*BKC) IV PUSH (10:59)
[2023-11-15] MEDS: ACETAMINOPHEN 500 MG TABLET 1000 MG PO (10:59)
[2023-11-15 11:02] VITALS: BP 137/90; PULSE 57; RESP 18; O2SAT 98
== END 2023-11-15 11:18 | disposition home or self-care (01) ==
PROVIDERS: Emergency Provider Student in an Organized Health Care Education/Training Program
DX: N17.9 Acute kidney failure, unspecified (principal); K59.00 Constipation, unspecified; K40.90 Unilateral inguinal hernia, without obstruction or gangrene, not specified as recurrent; F41.9 Anxiety disorder, unspecified; K21.9 Gastro-esophageal reflux disease without esophagitis; Z87.891 Personal history of nicotine dependence; Z90.49 Acquired absence of other specified parts of digestive tract
CPT/HCPCS: 36415; 74177; 80053; 81003; 83690; 85025; 96361; 96374; 96375; 99284; A9270; J1885; J2270; J7030; Q9967